=== PATIENT | male | born 1990 | race African-American/Black ===

== ENCOUNTER 2024-02-24 22:16 | Emergency (ER) | payer OTHER ==
[2024-02-25] MEDS ORDERED: Albuterol 200 PUFF (6.7GM INHALER) ONE (00:25)
[2024-02-25] MEDS ORDERED: Doxycycline 100 MG CAP ONE (00:25)
== END 2024-02-25 01:28 | disposition home or self-care (01) ==
LOC: ERS 22:16
DX: J18.9 Pneumonia, unspecified organism (principal); F17.210 Nicotine dependence, cigarettes, uncomplicated
CPT/HCPCS: 71045; 93005